=== PATIENT | male | born 2000 | race Caucasian/White ===

== ENCOUNTER 2021-08-26 18:53 | Emergency (ER) | payer OTHER, SELFPAY ==
[2021-08-26 18:54] VITALS: BP 153/80; PULSE 77; RESP 16; TEMP 36.8; O2SAT 100; BMI 24.3
[2021-08-26 20:48] LABS: Basophils # 0.1 K/mm3 (0-0.2); Basophils % 0.4 % (0.1-2.0); Eosinophils # 0.1 K/mm3 (0.0-0.4); Eosinophils % 0.7 % (0.1-12.0); Hematocrit 48.3 % (42.0-52.0); Hemoglobin 16.2 g/dL (14.1-18.0); Lymphocytes # 1.5 K/mm3 (0.7-4.5); Mean Corpuscular HGB Conc 33.4 g/dL (31.8-35.4); Mean Corpuscular Hemoglobin 32.6 pg (27.0-31.2); Mean Corpuscular Volume 97.4 fl (80-94); Monocytes # 0.6 K/mm3 (0.1-1.0); Monocytes % 5.2 % (1.7-9.3); Neutrophils # 9.2 K/mm3 (1.8-7.8); Neutrophils % 80.6 % (37.0-80.0); Platelet Count 271 K/mm3 (142-424); Red Blood Count 4.96 M/mm3 (4.60-6.20); Red Cell Distribution Width 12.6 % (11.5-17.5); White Blood Count 11.5 K/mm3 (4.8-10.8)
--- NOTE | 2021-08-26 20:52 | [facility].EDSKAF ---
ED Disposition Clinical Impression: Abscess of skin or subcutaneous tissue Qualifiers: Site of cutaneous abscess: other site Qualified Code(s): L02.818 - Cutaneous abscess of other sites Disposition: Home, Self-Care Condition on Discharge: Good Instructions: DI for Skin Abscess Additional Instructions: warm compresses and use meds and see pcp for follow up and culture results Prescriptions: Sulfamethoxazole/Trimethoprim [Bactrim DS tablet] 1 each PO BID #14 tab Transmission Status: Pending to [facility] cephALEXin [cephALEXin 500mg capsule*] 500 mg PO TID #30 cap Transmission Status: Pending to [facility] Referrals: [facility] [Primary Care Provider] - - Critical Care Critical Care Time: No Attestation: On 08/26/21, the high probability of a clinically significant, sudden or life threatening deterioration of the following system(s) required my full and direct attention, intervention and personal management. The time I documented below is in addition to time spent performing reported procedures but includes the following listed in this critical care notation. Medical Decision Making - Medical Records Medical records reviewed: Yes: I reviewed the patient's medical records. - [facility] Inquiry Pt receiving controlled substance: No Vital Signs: 08/26/21 18:54 Temperature 98.2 F Temperature Source Oral Pulse Rate [Right] 77 Respiratory Rate 16 Blood Pressure [Right Radial Artery] 153/80 H Blood Pressure Mean [Right Radial Artery] 104 02 Sat by Pulse Oximetry 100 Orders (Tests/Meds): ED MEDICATIONS Generic Name Dose Route Start Last Admin Trade Name Freq PRN Reason Stop Dose Admin Ceftriaxone Sodium 1 gm/ 50 mls @ 100 mls/hr 08/26/21 20:45 Sodium Chloride IV 09/09/21 20:44 Q24H JENNY Discontinued Medications Generic Name Dose Route Start Last Admin Trade Name Freq PRN Reason Stop Dose Admin Ketorolac Tromethamine 30 mg 08/26/21 20:39 Ketorolac 30mg/Ml Vial IV 08/26/21 20:40 ONCE ONE ORDERS Category Date Time Status C-Reactive Protein Stat Lab 08/26/21 20:35 Received Complete Blood Count Auto Diff Stat Lab 08/26/21 20:35 Received Comprehensive Metabolic Panel Stat Lab 08/26/21 20:35 Received Erythrocyte Sedimentation Rate Stat Lab 08/26/21 20:35 Received Lactic Acid Stat Lab 08/26/21 20:42 Received Procalcitonin Stat Lab 08/26/21 20:35 Received Blood Culture Stat Micro 08/26/21 20:42 Received Skin/Abscess/FB HPI - General Chief complaint: Skin/Abscess/Foreign Body Stated complaint: Lump on R groin Time Seen by Provider: 08/26/21 20:00 Mode of Arrival: Ambulatory Source of Information: Patient, Medical Record Limitations: No Limitations Description of Symptoms (Recalled from ER Triage Doc. by RN): pt states abcess show up on last tuesday on rt groin and has progessive got worse - History of Present Illness HPI narrative: has swelling rt groin over the last 2 days - no fever or scrotal involvement MD complaint: abscess/boil Onset (ago): day(s) Tetanus up to date: unsure Location: genitals Severity: moderate Associated symptoms: denies other symptoms Treatments prior to arrival: none - Related Data Previous Rx's Medication Instructions Recorded Sulfamethoxazole/Trimethoprim 1 each PO BID #14 tab 08/26/21 [Bactrim DS tablet] cephALEXin [cephALEXin 500mg 500 mg PO TID #30 cap 08/26/21 capsule*] Allergies Allergy/AdvReac Type Severity Reaction Status Date / Time No Known Allergies Allergy Verified 08/26/21 20:28 [facility] History - Hepatitis A Screen Drug use history?: No High risk sexual behaviors?: No History of sexually transmitted infection?: No Currently employed?: No Childcare worker?: No Do you have indoor plumbing?: Yes Do you have electricity?: Yes Attestation statement:: This patient has been screened for Hepatitis A risk factors. I have reviewed the patient's past medic
[2021-08-26 20:53] LABS: Alanine Aminotransferase 18 U/L (12-78); Albumin Level 5.2 g/dl (3.5-5.0); Albumin/Globulin Ratio 1.4 (1.1-1.8); Alkaline Phosphatase 98 U/L (38-126); Anion Gap 16.1 mEq/L (5-15); Aspartate Amino Transferase 30 U/L (17-59); Bilirubin,Total 0.7 mg/dl (0.2-1.3); Blood Urea Nitrogen 16 mg/dl (9-20); Calcium 10.1 mg/dl (8.4-10.2); Carbon Dioxide 29 mmol/L (22.0-30.0); Chloride 102 mmol/L (98-107); Creatinine Clearance Estimated 129 mL/min (50-200); Estimated Glomerular Filt Rate 107 ml/min (>60); GFR (African American) 129 ML/MIN (>60); Globulin 3.7 g/dL (1.3-3.2); Glucose 100 mg/dl (74-100); Potassium 4.1 mmoL/L (3.5-5.1); Sodium 143 mmol/L (136-145); Total Protein,Serum 8.9 g/dl (6.3-8.2)
[2021-08-26 20:58] LABS: C-Reactive Protein 45.7 mg/L (0-4)
[2021-08-26 21:01] LABS: Lactic Acid 0.9 mmol/L (0.7-2.1)
[2021-08-26 21:03] VITALS: BP 135/82; PULSE 95; RESP 16; TEMP 36.9; O2SAT 99
[2021-08-26 21:12] LABS: Procalcitonin 0.056 ng/mL (0.0-2.0)
[2021-08-26 21:48] LABS: Erythrocyte Sedimentation Rate 19 mm/hr (0-15)
== END 2021-08-26 21:50 | disposition home or self-care (01) ==
PROVIDERS: Emergency Provider Emergency Medicine; PCP Family Medicine
DX: L02.214 Cutaneous abscess of groin (principal)
CPT/HCPCS: 10060; 80053; 83605; 84145; 85025; 85651; 86140; 87040; 87070; 87077; 87186; 87205; 96365; 96375; 99283